=== PATIENT | female | born 1970 | race African-American/Black ===

== ENCOUNTER 2018-10-05 17:01 | Emergency (ER) | payer OTHER ==
[2018-10-05 17:28] LABS: Absolute Lymphocytes (CBC) 3.5 K/uL (0.7-4.9); Absolute Monocytes 0.8 K/uL (0.1-1.3); Basophils % 0.5 % (0-1.3); Eosinophils % 1.6 % (0-4.4); Hematocrit 40.7 % (36.0-45.0); Lymphocytes % 27.4 % (15.3-44.8); MPV 8.5 fL (7.6-11.3); Monocytes % 6.5 % (3.3-12.3); RBC Red Blood Cell Count 4.28 M/uL (3.86-4.86)
[2018-10-05 17:31] LABS: Protime INR 0.97
[2018-10-05 18:08] LABS: ALT/SGPT 27 U/L (12-78); AST/SGOT 13 U/L (15-37); Albumin 3.5 g/dL (3.4-5.0); Alkaline Phosphatase 115 U/L (45-117); BUN Blood Urea Nitrogen 14 mg/dL (7-18); Bicarbonate 34 mmol/L (21-32); Bilirubin Direct < 0.1 mg/dL (0-0.2); Bilirubin Total 0.3 mg/dL (0.2-1.0); Glucose Level 177 mg/dL (74-106); Magnesium 2.1 mg/dL (1.8-2.4); NT PRO-BNP 10 pg/mL (<125); Protein, Total 7.8 g/dL (6.4-8.2); Sodium Level 135 mmol/L (136-145); Troponin (Emerg Dept Use Only) < 0.02 ng/mL (0.0-0.045)
[2018-10-05] MEDS ORDERED: POTASSIUM 25 MEQ EFFERV TAB ONE ×2 (18:46→20:09)
[2018-10-05] MEDS ORDERED: ASPIRIN 81 MG CHEWABLE TABLET ONE (18:56)
[2018-10-05] MEDS ORDERED: CARVEDILOL 6.25 MG TAB ONE (18:56)
--- NOTE | 2018-10-05 18:56 | ER ---
Nurse's Notes [facility] Name: Isa Arthur Age: 48 yrs Sex: Female : 1970 Arrival Date: 10/05/2018 Time: 17:04 Bed 3 Private MD: Diagnosis: Chest pain, unspecified;Obesity, unspecified;Cardiomyopathy;Hypokalemia Presentation: 10/05 17:00 Presenting complaint: EMS states: pt was at cardiac rehab, was on exercise bike for iw about 6 minutes, started feeling chest pressure and discomfort, had approx 45 second run of V-tach, pt has pacemaker/defib. Transition of care: patient was received from another setting of care (ambulatory specialty care practice), cardiac rehab. Onset of symptoms was October 05, 2018. Risk Assessment: Do you want to hurt yourself or someone else? Patient reports no desire to harm self or others. Initial Sepsis Screen: Does the patient meet any 2 criteria? No. Patient's initial sepsis screen is negative. Does the patient have a suspected source of infection? No. Patient's initial sepsis screen is negative. Care prior to arrival: IV initiated. missed attempt X2. 17:00 Method Of Arrival: EMS: [facility] iw 17:14 Acuity: ROSSY 2 iw Historical: - Allergies: 17:23 No Known Allergies; iw - Home Meds: 17:23 atorvastatin 80 mg oral tab 1 tab once daily [Active]; carvedilol 25 mg oral tab 2 iw times per day [Active]; naproxen 500 mg Oral tab 1 tab 2 times per day [Active]; sacubitril-valsartan oral oral 2 times per day [Active]; spironolactone 50 mg Oral tab 1 tab once daily [Active]; torsemide 20 mg oral tab twice a day [Active]; lidocaine 5% patch twice a day [Active]; - PMHx: 17:25 Anemia; CHF; Hypertension; Arthritis; Pacemaker; iw - Immunization history:: Adult Immunizations up to date. - Social history:: Smoking status: Patient/guardian denies using tobacco. - Ebola Screening: : Patient negative for fever greater than or equal to 101.5 degrees Fahrenheit, and additional compatible Ebola Virus Disease symptoms Patient denies exposure to infectious person Patient denies travel to an Ebola-affected area in the 21 days before illness onset No symptoms or risks identified at this time. - Family history:: not pertinent. Screenin:24 Abuse screen: Denies threats or abuse. Denies injuries from another. Nutritional ph screening: No deficits noted. Tuberculosis screening: No symptoms or risk factors identified. Fall Risk None identified. Assessment: 17:30 General: Appears in no apparent distress. comfortable, obese, well groomed, Behavior is ph calm, cooperative, appropriate for age. Pain: Complains of pain in anterior aspect of left upper chest Pain currently is 4 out of 10 on a pain scale. Neuro: Level of Consciousness is awake, alert, obeys commands, Oriented to person, place, time, situation. Cardiovascular: Reports chest pain, palpitations, shortness of breath, when episode of V-tach occurred, denies these symptoms now Capillary refill < 3 seconds in bilateral fingers Patient's skin is warm and dry. Chest pain quality is heaviness, is located in left anterior chest wall began 30 minutes prior to arrival episodes last < 1 minute is aggravated by activity. Respiratory: Airway is patent Respiratory effort is even, unlabored, Respiratory pattern is regular, symmetrical, Denies shortness of breath. GI: Patient currently denies abdominal pain, nausea, vomiting. Derm: Skin is intact, is healthy with good turgor, Skin is pink, warm \\T\\ dry. Musculoskeletal: Circulation, motion, and sensation intact. Range of motion: intact in all extremities. 18:15 Reassessment: Patient appears in no apparent distress at this time. Patient and/or ph family updated on plan of care and expected duration. Pain level reassessed. Patient is alert, oriented x 3, equal unlabored respirations, skin warm/dry/pink. Pt resting quietly, rates pain at 3/10, states, " It isn't really pain , more like discomfort." VSS, HR paced at 106 on bedside monitor. 19:07 Reassessment: Patient appears in no apparent distress at this time. Patient and/or sg family updated on plan of care and expected duration. Pain level reassessed. Patient is alert, oriented x 3, equal unlabored respirations, skin warm/dry/pink. pt to be dc to home pending repeat troponin and adminstration of additional 25 mEq. 19:30 Reassessment: Patient appears in no apparent distress at this time. Patient is alert, lp1 oriented x 3, equal unlabored respirations, skin warm/dry/pink. Patient states feeling better. Pain: Denies pain. Respiratory: Respiratory effort is even, unlabored. 19:30 Reassessment: Aware of waiting for lab results prior to discharge. lp1 Vital Signs: 17:23 BP 125 / 82; Pulse 110; Resp 18 S; Temp 98.3; Pulse Ox 98% on R/A; Weight 121.11 kg; iw Height 5 ft. 4 in. (162.56 cm); Pain 5/10; 18:35 BP 106 / 85; Pulse 102; Resp 18; Pulse Ox 99% on R/A; ph 19:00 BP 110 / 78; Pulse 105; Resp 22; Pulse Ox 99% on R/A; Pain 1/10; lp1 19:30 BP 113 / 84; Pulse 109; Resp 20; Pulse Ox 96% on R/A; lp1 20:09 BP 113 / 80; Pulse 102; Resp 20; Pulse Ox 97% on R/A; Pain 1/10; lp1 17:23 Body Mass Index 45.83 (121.11 kg, 162.56 cm) ED Course: 17:04 Patient arrived in ED. iw 17:07 Sagar Arboleda MD is Attending Physician. elieser 17:08 EKG done, by mineral technologist. reviewed by Sagar Arboleda MD. sm3 17:16 Triage completed. iw 17:24 Arm band placed on. iw 17:30 Inserted saline lock: 20 gauge in right antecubital area, using aseptic technique. ph 18:24 Patient has correct armband on for positive identification. Placed in gown. Bed in low ph position. Call light in reach. Side rails up X2. air sampling and monitoring on. Pulse ox on. NIBP on. Door closed. Noise minimized. Warm blanket given. Head of bed elevated. 18:27 Juan Batista, RN is Primary Nurse. sg 18:34 No provider procedures requiring assistance completed. ph 18:55 Burke Hernandez MD is Referral Physician. elieser 19:07 Initial lab(s) drawn, by me, sent to lab. sg 19:57 Primary Nurse role handed off by Juan Batista, RN ed1 20:01 Marlen Briscoe, RN is Primary Nurse. lp1 20:09 IV discontinued, No redness/swelling at site. Pressure dressing applied. lp1 20:36 XRAY Chest (1 view) In Process Unspecified. EDMS Administered Medications: 18:32 Drug: Potassium Effervescent Tablet 50 mEq Route: PO; sg 19:00 Follow up: Response: No adverse reaction lp1 18:54 Drug: Coreg 25 mg Route: PO; sg 20:11 Follow up: Response: No adverse reaction lp1 18:54 Drug: Aspirin 162 mg Route: PO; sg 20:12 Follow up: Response: No adverse reaction lp1 20:01 Drug: Potassium Effervescent Tablet 25 mEq Route: PO; lp1 20:12 Follow up: Response: No adverse reaction lp1 Outcome: 18:55 Discharge ordered by . elieser 20:09 Discharged to home ambulatory, with family. lp1 20:09 Condition: good 20:09 Discharge instructions given to patient, Instructed on discharge instructions, follow up and referral plans. medication usage, Demonstrated understanding of instructions, follow-up care, medications, Prescriptions given X 1. 20:13 Patient left the ED. lp1 Signatures: Dispatcher [employer] EDMS Juan Batista, RN Sagar Flanagan MD MD cha Williams, Irene RN Kendal Gamez RN RN ed1 Marlen Briscoe RN RN lp1 Agustina Boswell RN RN [address] 3
--- NOTE | 2018-10-05 18:56 | EDPHYS ---
Physician Documentation [facility] Name: Isa Arthur Age: 48 yrs Sex: Female : 1970 Arrival Date: 10/05/2018 Time: 17:04 Bed 3 Private MD: ED Physician Sagar Arboleda HPI: 10/05 18:27 This 48 yrs old Black Female presents to ER via EMS with complaints of Chest Pressure. elieser 18:27 The patient or guardian reports chest pain that is located primarily in the anterior elieser chest wall. Onset: just prior to arrival. The pain does not radiate. Associated signs and symptoms: Pertinent positives: lightheadedness, shortness of breath. The chest pain is described as a pressure. Modifying factors: The symptoms are alleviated by rest, the symptoms are aggravated by exertion. Severity of pain: At its worst the pain was mild in the emergency department the pain has resolved. Historical: - Allergies: 17:23 No Known Allergies; iw - Home Meds: 17:23 atorvastatin 80 mg oral tab 1 tab once daily [Active]; carvedilol 25 mg oral tab 2 iw times per day [Active]; naproxen 500 mg Oral tab 1 tab 2 times per day [Active]; sacubitril-valsartan oral oral 2 times per day [Active]; spironolactone 50 mg Oral tab 1 tab once daily [Active]; torsemide 20 mg oral tab twice a day [Active]; lidocaine 5% patch twice a day [Active]; - PMHx: 17:25 Anemia; CHF; Hypertension; Arthritis; Pacemaker; iw - Immunization history:: Adult Immunizations up to date. - Social history:: Smoking status: Patient/guardian denies using tobacco. - Ebola Screening: : Patient negative for fever greater than or equal to 101.5 degrees Fahrenheit, and additional compatible Ebola Virus Disease symptoms Patient denies exposure to infectious person Patient denies travel to an Ebola-affected area in the 21 days before illness onset No symptoms or risks identified at this time. - Family history:: not pertinent. ROS: 18:27 Constitutional: Negative for fever, chills, and weight loss, Eyes: Negative for injury, elieser pain, redness, and discharge, ENT: Negative for injury, pain, and discharge, Neck: Negative for injury, pain, and swelling, Abdomen/GI: Negative for abdominal pain, nausea, vomiting, diarrhea, and constipation, Back: Negative for injury and pain, : Negative for injury, bleeding, discharge, and swelling, MS/Extremity: Negative for injury and deformity, Skin: Negative for injury, rash, and discoloration, Neuro: Negative for headache, weakness, numbness, tingling, and seizure, Psych: Negative for depression, anxiety, suicide ideation, homicidal ideation, and hallucinations, Allergy/Immunology: Negative for hives, rash, and allergies, Endocrine: Negative for neck swelling, polydipsia, polyuria, polyphagia, and marked weight changes, Hematologic/Lymphatic: Negative for swollen nodes, abnormal bleeding, and unusual bruising. 18:27 Cardiovascular: Positive for chest pain. 18:27 Respiratory: Positive for shortness of breath, on exertion. Exam: 18:27 Constitutional: This is a well developed, well nourished patient who is awake, alert, elieser and in no acute distress. Head/Face: Normocephalic, atraumatic. Eyes: Pupils equal round and reactive to light, extra-ocular motions intact. Lids and lashes normal. Conjunctiva and sclera are non-icteric and not injected. Cornea within normal limits. Periorbital areas with no swelling, redness, or edema. ENT: Nares patent. No nasal discharge, no septal abnormalities noted. Tympanic membranes are normal and external auditory canals are clear. Oropharynx with no redness, swelling, or masses, exudates, or evidence of obstruction, uvula midline. Mucous membranes moist. Neck: Trachea midline, no thyromegaly or masses palpated, and no cervical lymphadenopathy. Supple, full range of motion without nuchal rigidity, or vertebral point tenderness. No Meningismus. Chest/axilla: Normal chest wall appearance and motion. Nontender with no deformity. No lesions are appreciated. Cardiovascular: Regular rate and rhythm with a normal S1 and S2. No gallops, murmurs, or rubs. Normal PMI, no JVD. No pulse deficits. Respiratory: Lungs have equal breath sounds bilaterally, clear to auscultation and percussion. No rales, rhonchi or wheezes noted. No increased work of breathing, no retractions or nasal flaring. Abdomen/GI: Soft, non-tender, with normal bowel sounds. No distension or tympany. No guarding or rebound. No evidence of tenderness throughout. Back: No spinal tenderness. No costovertebral tenderness. Full range of motion. Skin: Warm, dry with normal turgor. Normal color with no rashes, no lesions, and no evidence of cellulitis. MS/ Extremity: Pulses equal, no cyanosis. Neurovascular intact. Full, normal range of motion. Neuro: Awake and alert, GCS 15, oriented to person, place, time, and situation. Cranial nerves II-XII grossly intact. Motor strength 5/5 in all extremities. Sensory grossly intact. Cerebellar exam normal. Normal gait. Psych: Awake, alert, with orientation to person, place and time. Behavior, mood, and affect are within normal limits. 18:27 Musculoskeletal/extremity: DVT Exam: No signs of deep vein thrombosis. no pain, no swelling, no tenderness, negative Homans' sign noted on exam, no appreciated bluish discoloration, no erythema, no increased warmth. 18:32 Cardiovascular: Rate: normal, Rhythm: regular, Pulses: no pulse deficits are elieser appreciated, Heart sounds: normal, normal S1and S2, no S3 or S4, no murmur, no rub, no gallop, Edema: is not appreciated, JVD: is not appreciated. Vital Signs: 17:23 BP 125 / 82; Pulse 110; Resp 18 S; Temp 98.3; Pulse Ox 98% on R/A; Weight 121.11 kg; iw Height 5 ft. 4 in. (162.56 cm); Pain 5/10; 18:35 BP 106 / 85; Pulse 102; Resp 18; Pulse Ox 99% on R/A; ph 19:00 BP 110 / 78; Pulse 105; Resp 22; Pulse Ox 99% on R/A; Pain 1/10; lp1 19:30 BP 113 / 84; Pulse 109; Resp 20; Pulse Ox 96% on R/A; lp1 20:09 BP 113 / 80; Pulse 102; Resp 20; Pulse Ox 97% on R/A; Pain 1/10; lp1 17:23 Body Mass Index 45.83 (121.11 kg, 162.56 cm) iw MDM: 17:07 Patient medically screened. [facility] 18:30 Data reviewed: vital signs, nurses notes, lab test result(s), EKG, radiologic studies, [facility] plain films. 10/05 17:09 Order name: Basic Metabolic Panel; Complete Time: 18:26 [facility] 10/05 17:09 Order name: CBC with Diff; Complete Time: 18:26 [facility] 10/05 17:09 Order name: LFT's; Complete Time: 18:26 [facility] 10/05 17:09 Order name: Magnesium; Complete Time: 18:26 [facility] 10/05 17:09 Order name: NT PRO-BNP; Complete Time: 18:26 [facility] 10/05 17:09 Order name: PT-INR; Complete Time: 18:26 [facility] 10/05 17:09 Order name: Troponin (emerg Dept Use Only); Complete Time: 18:26 [facility] 10/05 17:09 Order name: XRAY Chest (1 view) [facility] 10/05 17:09 Order name: TSH; Complete Time: 18:26 [facility] 10/05 18:55 Order name: Troponin I: 700pm [facility] 10/05 18:55 Order name: Troponin I [facility] 10/05 17:09 Order name: EKG; Complete Time: 17:11 [facility] 10/05 17:09 Order name: Cardiac monitoring; Complete Time: 17:42 [facility] 10/05 17:09 Order name: EKG - Nurse/Tech; Complete Time: 17:42 [facility] 10/05 17:09 Order name: IV Saline Lock; Complete Time: 17:42 [facility] 10/05 17:09 Order name: Labs collected and sent; Complete Time: 17:42 [facility] 10/05 17:09 Order name: O2 Per Protocol; Complete Time: 17:43 [facility] 10/05 17:09 Order name: O2 Sat Monitoring; Complete Time: 17:43 [facility] 10/05 18:27 Order name: PO challenge: juice; Complete Time: 18:27 [facility] Administered Medications: 18:32 Drug: Potassium Effervescent Tablet 50 mEq Route: PO; sg 19:00 Follow up: Response: No adverse reaction lp1 18:54 Drug: Coreg 25 mg Route: PO; sg 20:11 Follow up: Response: No adverse reaction lp1 18:54 Drug: Aspirin 162 mg Route: PO; sg 20:12 Follow up: Response: No adverse reaction lp1 20:01 Drug: Potassium Effervescent Tablet 25 mEq Route: PO; lp1 20:12 Follow up: Response: No adverse reaction lp1 Disposition: 10/05/18 18:55 Discharged to Home. Impression: Chest pain, unspecified, Obesity, unspecified, Cardiomyopathy, Hypokalemia. - Condition is Stable. - Discharge Instructions: Nonspecific Chest Pain, Obesity, Adult, Nonspecific Chest Pain, [id number], Aspirin and Your Heart, Hypokalemia. - Prescriptions for Potassium Chloride 20 meq Oral Packet - take 1 packet by ORAL route once daily 1 packet in 6 (six) ounces of water or juice; Take after meal; 30 packet. - Medication Reconciliation Form, Thank You Letter, Antibiotic Education, Prescription Opioid Use form. - Follow up: Private Physician; When: 2 - 3 days; Reason: Recheck today's complaints, Continuance of care, Re-evaluation by your physician. Follow up: Burke Hernandez; When: 2 - 3 days; Reason: Recheck today's complaints, Continuance of care, Re-evaluation by your physician. - Problem is new. - Symptoms have improved. Signatures: Dispatcher [employer] EDMS Juan Batista RN RN sg Anderson, Corey, MD MD cha Williams, Irene, RN RN iw Marlen Briscoe RN RN lp1 Corrections: (The following items were deleted from the chart) 20:13 18:55 10/05/2018 18:55 Discharged to Home. Impression: Chest pain, unspecified; lp1 Obesity, unspecified; Cardiomyopathy; Hypokalemia. Condition is Stable. Discharge Instructions: Nonspecific Chest Pain, Obesity, Adult, Nonspecific Chest Pain, [id number], Aspirin and Your Heart, Hypokalemia. Prescriptions for Potassium Chloride 20 meq Oral Packet - take 1 packet by ORAL route once daily 1 packet in 6 (six) ounces of water or juice; Take after meal; 30 packet. and Forms are Medication Reconciliation Form, Thank You Letter, Antibiotic Education, Prescription Opioid Use. Follow up: Private Physician; When: 2 - 3 days; Reason: Recheck today's complaints, Continuance of care, Re-evaluation by your physician. Follow up: Burke Hernandez; When: 2 - 3 days; Reason: Recheck today's complaints, Continuance of care, Re-evaluation by your physician. Problem is new. Symptoms have improved. elieser
--- OUTSIDE RECORDS SUMMARY | 2018-10-06 12:34 | XMS REPORT | Clinical Summary ---
:1970 Author Organization [facility] Address [address] [place] [address] Care Team Providers Name Role Phone Armando Palma MD Primary Care Provider Allergies No Known Allergies Medications Medication Sig Dispensed Refills Start Date End Date Status diphenhydrAMINE Take 50 mg by 0 07/19/2015 Active (BENADRYL) 25 mg mouth every night capsuleIndications: as needed . allergic rhinitis carvedilol (COREG) 12.5 Take 12.5 mg by 0 Active MG tabletIndications: mouth 2 (two) chronic heart failure times daily with breakfast and dinner Take 1 1/2 tablet twice a day . digoxin (LANOXIN) 0.125 Take 125 mcg by 0 Active MG tabletIndications: mouth daily. Acute on chronic combined systolic (congestive) and diastolic (congestive) heart failure (HCC), Palpitations, Essential hypertension with goal blood pressure less than 130/80, Biventricular ICD (implantable cardioverter-defibrilla tor) in place sacubitril-valsartan Take 1 tablet by 60 tablet 0 01/27/2016 Active (ENTRESTO) 24-26 mg Tab mouth 2 (two) times daily. ivabradine (CORLANOR) 5 Take 1 tablet (5 30 tablet 0 01/27/2016 Active mg Tab tablet mg total) by mouth 2 (two) times daily. 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 Last Filed Vital Signs Not on file Plan of Treatment Health Maintenance Due Date Last Done Comments INFLUENZA VACCINE 02/07/2018 Implants Implanted Type Area Technology Lab Teacher Device Shelf Model / Identifier Expiration Serial / Date Lot Lead Attain Performa 78cm [id number] - [id number] Cardiovascular [employer]:CARD 10/30/2017 [id number] / Implanted: Qty: 1 on 01/09/2016 RHY:DISEASE MGT [id number] / Ld Endocardial Df4 Act 62 [id number] - [id number] Defibrillators [employer]: CARD 06/06/2017 [id number] / Implanted: Qty: 1 on 01/09/2016 by Jose Saldana MD RHY:DISEASE MGT [id number] / Lead Pacemkr Capsur Novus 45cm [id number] - [id number] Pacemaker Lead [employer] :CARD 11/12/2017 [id number] / Implanted: Qty: 1 on 01/09/2016 by Jose Saldana MD RHY:DISEASE MGT [id number] / Amplia Mri Quad Primer Waterproofing Machine Adjuster-D Surescan Pacemakers [employer] 04/06/2017 [id number] / Implanted: Qty: 1 on 01/09/2016 by Jose Saldana MD [id number] / Results Not on fileafter 10/05/2017 Insurance Payer Benefit Plan / Subscriber ID Type Phone Address Group BLUE CROSS/BLUE BCBS PPO POS EPO xxxxxxxxxxxx PPO [phone] [address] [place] [address] (Home) [place] [address] Advance Directives For more information, please contact:[address] [place]iB[place], [place] [phone] Code Status Date Activated Date Inactivated Comments Full Code 03/19/2016 9:38 AM 03/19/2016 10:16 PM This code status was determined by: Patient Full Code 01/06/2016 10:17 AM 01/10/2016 4:19 PM This code status was determined by: Patient
--- NOTE | 2018-10-06 14:32 | EKG ---
Test Date: 2018-10-05 Test Time: 17:03:29 Channel Sales Director: KANDICE MEASUREMENT RESULTS: Intervals: Rate: 107 MA: 124 QRSD: 148 QT: 410 QTc: 547 [place]: P: 66 MA: 124 QRS: -77 T: 63 INTERPRETIVE STATEMENTS: Electronic ventricular pacemaker No previous ECG available for comparison Electronically Signed On 10-06-18 14:29:12 CDT by Burke Hernandez
--- NOTE | 2018-10-06 15:19 | RAD REPORT ---
EXAM DESCRIPTION: Tomasa Single View10/06/2018 11:37 am CLINICAL HISTORY: Chest pain COMPARISON: None FINDINGS: The lungs appear clear of acute infiltrate. The heart is mildly enlarged. Pacemaker leads are in place. IMPRESSION: No acute abnormalities displayed
== END 2018-10-05 20:13 | disposition home or self-care (01) ==
LOC: ER 17:01
DX: R07.9 Chest pain, unspecified (principal); E66.9 Obesity, unspecified; Z68.42 Body mass index [BMI] 45.0-49.9, adult; I42.9 Cardiomyopathy, unspecified; E87.6 Hypokalemia; D64.9 Anemia, unspecified; I11.0 Hypertensive heart disease with heart failure; I50.9 Heart failure, unspecified
CPT/HCPCS: 36415; 71045; 80048; 80076; 83735; 83880; 84443; 84484; 85025; 85610; 93005; 99285

== ENCOUNTER 2020-05-21 15:56 | Emergency (ER) | payer OTHER ==
--- OUTSIDE RECORDS SUMMARY | 2020-05-21 16:08 | XMS REPORT | Continuity of Care Document ---
:1970 Author Organization [facility] t Address [address] [place] [address] Care Team Providers Name Role Phone Minerva WHALEY Primary Care Physician Pilo Blanc Attending Clinician Problems Condition Condition Condition Status Onset Resolution Last Treating Co mments Source Name Details Category Date Date Treatment Clinician Date Supraventr Supraventr Disease Active 2015-[address] icular icular 1-10 [facility] tachycardi tachycardi 00:00: Me dical a a 00 Center Chronic Chronic Disease Active [facility] St combined combined 01-23 [facility] - systolic systolic 00:00: Medica l (congestiv (congestiv 00 Ce nter e) and e) and diastolic diastolic (congestiv (congestiv e) heart e) heart failure failure Hypertensi Hypertensi Disease Active [facility] on on 01-23 [facility] - 00:[facility] Medical 00 Center Acute on Acute on Disease [facility] chronic chronic 12[facility]30 [facility] - combined combined 00:00: Medica l systolic systolic 00 Center (congestiv (congestiv e) and e) and diastolic diastolic (congestiv (congestiv e) heart e) heart failure failure Allergies, Adverse Reactions, Alerts This patient has no known allergies or adverse reactions. Social History Social Habit Start Date Stop Date Quantity Comments Source Sex Assigned At [facility] Tobacco use and 2016-03-20 2016-03-[address] [facility] - exposure 00:00:00 00:00:00 Medical Center Alcohol intake 2016-03-20 2016-03-[address] [facility] - 00:00:00 00:00:00 non-drinker of Medical Ce nter alcohol (finding) Smoking Status Start Date Stop Date Source Never sm[facility] Medications Ordered Filled Start Stop Current Ordering Indication Dosage Frequency Signature Comments Components Source Medication Medication Date Date Medication? Clinician (SIG) Name Name carvedilol 2015-05 Yes chronic 12.5mg Take 12.[address] (COREG) 1-10 heart mg by [facility] - 12.5 MG 20:16: failure mouth 2 Medi nasrin tablet 01 (two) Center times daily with breakfast and dinner Take 1 1/2 tablet twice a day . digoxin 2015-05 Yes Biventricul 125ug QD Take [address] (LANOXIN) 1-10 ar ICD mcg by [facility] - 0.125 MG 20:16: (implantabl mouth M edical tablet 01 e daily. Center cardioverte r-defibrill ator) in place sacubitril- Yes 1{tbl} Q.5D Take [address] valsartan 9-19 tablet by [facility] - (ENTRESTO) 00:00: mouth 2 Medi nasrin 24-26 mg 00 (two) Center Tab times daily. ivabradine Yes 5mg Q.5D Take 1 [facility] (CORLANOR) 9-19 tablet (5 [facility] s - 5 mg Tab 00:00: mg total) Medi nasrin tablet 00 by mouth 2 Center (two) times daily. diphenhydrA Yes allergic 50mg Take [address] MINE 3-11 rhinitis by mouth [facility] - (BENADRYL) 00:00: every Medica l 25 mg 00 night as Center capsule needed . Immunizations Ordered Immunization Filled Immunization Date Status Commen ts Source Name Name Pneumococcal 2016-01-[address] [facility] - Polysaccharide 00:00:00 Medical Ce nter (Pneumovax) Procedures This patient has no known procedures. Encounters Start End Encounter Admission Attending Care Care Encounter Source Date/Time Date/Time Type Type Clinicians Facility Department ID 2019-06-21 2019-06-21 [id number] 19:42:28 20:57:00 Leo El [id number] [place] [id number] [place] [id number] Results This patient has no known results.
--- OUTSIDE RECORDS SUMMARY | 2020-05-21 16:08 | XMS REPORT | Clinical Summary ---
:1970 Author Organization [facility] Address [address] [place] [address] Care Team Providers Name Role Phone MD Minerva Primary Care Provider Allergies No Known Allergies [...] Take 1 tablet (5 30 tablet 0 6 Active mg Tab tablet mg total) by mouth 2 (two) times daily. 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 Hypertension 01/24/2016 Acute on chronic combined systolic (congestive) and di astolic (congestive) 12/31/2015 heart failure Immunizations Name Administration Dates Next Due Pneumococcal Polysaccharide (Pneumovax) 01/23/2016 Social History Tobacco Use Types Packs/Day Years Used Date Never Smoker Smokeless Tobacco: Never Used Alcohol Use Drinks/Week oz/Week Comments No Sex Assigned at Date Recorded Not on file Last Filed Vital Signs Not on file Plan of Treatment Not on file Implants Implanted Type Area Infection Prevention Coordinator Device Shelf Model / Identifier Expiration Serial / Date Lot Lead Attain Performa 78cm [id number] - [id number] Cardiovascular [employer]:CARD 10/30/2017 [id number] / Implanted: Qty: 1 on 01/09/2016 at [facility] RHY:DISEASE MGT [id number] / Ld Endocardial Df4 Act 62 [id number]-62 - [id number] Defibrillators [employer]:CARD 06/06/2017 [id number] / Implanted: Qty: 1 on 01/09/2016 by Jose Saldana MD at [facility] RHY:DISEASE MGT [id number] / Lead Pacemkr Capsur Novus 45cm 5076-45 - [id number] Pacemaker Ariana d [employer]:CARD 11/12/2017 [id number] / Implanted: Qty: 1 on 01/09/2016 by Jose Saldana MD at [facility] RHY:DISEASE MGT [id number] / Amplia Mri Quad Projection Technician-D Surescan Pacemakers [employer] 04/06/2017 [id number] / Implanted: Qty: 1 on 01/09/2016 by Jose Saldana MD at [facility] RPE [id number] / Results Not on fileafter 05/21/2019 Insurance Payer Benefit Plan / Subscriber ID Effective Dates Phone Addre ss Type Group BLUE BCBS PPO POS [id number] 2013-Bab[place]unde [phone] [id number] PPO CROSS/BLUE EPO CHOICE t 2 [facility] [id number] Advance Directives For more information, please contact: [phone] Code Status Date Activated Date Inactivated Comments Full Code 03/19/2016 9:38 AM 03/19/2016 10:16 PM This code status was determined by: Patient Full Code 01/06/2016 10:17 AM 01/10/2016 4:19 PM This code status was determined by: Patient
[2020-05-21 18:43] LABS: Absolute Lymphocytes (CBC) 3.1 K/uL (0.7-4.9); Basophils % 0.3 % (0-1.3); Hematocrit 41.8 % (36.0-45.0); Lymphocytes % 25.4 % (15.3-44.8); MPV 8.6 fL (7.6-11.3); RBC Red Blood Cell Count 4.33 M/uL (3.86-4.86)
[2020-05-21 18:55] LABS: Protime INR 1.04
--- NOTE | 2020-05-21 18:59 | RAD REPORT ---
EXAM DESCRIPTION: Tomasa Single View05/21/2020 6:53 pm CLINICAL HISTORY: sob COMPARISON: Dec 2019 FINDINGS: The lungs appear clear of acute infiltrate. The heart is mildly to moderately enlarged. P acemaker leads are in place. IMPRESSION: No acute abnormalities displayed
[2020-05-21 19:02] LABS: ALT/SGPT 19 U/L (12-78); AST/SGOT 12 U/L (15-37); Albumin 3.6 g/dL (3.4-5.0); Alkaline Phosphatase 92 U/L (45-117); BUN Blood Urea Nitrogen 9 mg/dL (7-18); Bicarbonate 31 mmol/L (21-32); Bilirubin Direct < 0.1 mg/dL (0-0.2); Bilirubin Total 0.5 mg/dL (0.2-1.0); Glucose Level 93 mg/dL (74-106); Magnesium 2.1 mg/dL (1.8-2.4); NT PRO-BNP 338 pg/mL (<125); Potassium 3.9 mmol/L (3.5-5.1); Sodium Level 139 mmol/L (136-145); Troponin (Emerg Dept Use Only) < 0.02 ng/mL (0.0-0.045)
--- NOTE | 2020-05-21 19:55 | RAD REPORT ---
EXAM DESCRIPTION: CT - Chest For Pe Angio - 05/21/2020 7:44 pm CLINICAL HISTORY: Chest pain COMPARISON: None. TECHNIQUE: Dynamically enhanced axial 3 mm thick images of the chest were obtained during administra tion of <100> mL Isovue 370 IV contrast. Coronal and oblique reconstruction images were generated and reviewed. Exam utilizes a protocol for optimal evaluation of pulmonary arterial tree. Maximum intensity projections 3D imaging was utilized All CT scans are performed using dose optimization technique as appropriate and may include automated exposure control or mA/KV adjustment according to patient size. FINDINGS: A pulmonary embolus is not seen. A thoracic aortic aneurysm is not noted. The heart is enlarged A pleural effusion is not seen. A pericardial effusion is not seen. A lung consolidation is not present. IMPRESSION: Negative for a pulmonary embolism.
--- NOTE | 2020-05-21 22:34 | EDPHYS ---
Physician Documentation [facility] Name: Isa Day Age: 50 yrs Sex: Female : 1970 Arrival Date: 05/21/2020 Time: 16:01 Bed 6 Private MD: ED Physician Sagar Arboleda HPI: 05/21 18:18 This 50 yrs old Black Female presents to ER via EMS with complaints of Palpitations, cp Shortness Of Breath. 18:18 The patient presents with a history of heart racing. Context: The symptoms occur at cp rest. Associated signs and symptoms: Pertinent positives: cough, SOB, Pertinent negatives: chest pain, fever, syncope. 18:18 Severity of symptoms: in the emergency department the symptoms are unchanged despite cp home interventions. 18:18 Onset: The symptoms/episode began/occurred 2 day(s) ago. cp Historical: - Allergies: 16:24 No Known Allergies; ss - PMHx: 16:24 Anemia; Arthritis; Hypertension; CHF; ss - PSHx: 16:24 Pacemaker/ defib; ss - Immunization history:: Adult Immunizations up to date. - Social history:: Smoking status: Patient denies any tobacco usage or history of. ROS: 18:25 Constitutional: Negative for body aches, chills, fever, poor PO intake. cp 18:25 Eyes: Negative for injury, pain, redness, and discharge. cp 18:25 ENT: Negative for ear pain, sore throat, difficulty swallowing, difficulty handling secretions. 18:25 Cardiovascular: Positive for palpitations, Negative for chest pain, edema. 18:25 Respiratory: Positive for cough, shortness of breath, on exertion. Negative for wheezing. 18:25 Abdomen/GI: Negative for abdominal pain, nausea, vomiting, and diarrhea, constipation, black/tarry stool, rectal bleeding. 18:25 Back: Negative for radiated pain. 18:25 Neuro: Negative for altered mental status, dizziness, headache, syncope, weakness. 18:25 All other systems are negative. Exam: 18:30 Constitutional: The patient appears in no acute distress, alert, awake, cp non-diaphoretic, non-toxic, well developed, well nourished, obese. 18:30 Head/Face: Normocephalic, atraumatic. cp 18:30 Eyes: Periorbital structures: appear normal, Conjunctiva: normal, no exudate, no injection, Sclera: no appreciated abnormality, Lids and lashes: appear normal, bilaterally. 18:30 ENT: External ear(s): are unremarkable, Nose: is normal, Mouth: Lips: moist, Oral mucosa: moist, Posterior pharynx: Airway: no evidence of obstruction, patent. 18:30 Neck: ROM/movement: is normal, is supple, without pain, no range of motions limitations. 18:30 Chest/axilla: Inspection: normal, Palpation: is normal, no crepitus, no tenderness. 18:30 Cardiovascular: Rate: normal, Rhythm: regular, Edema: is not appreciated, JVD: is not appreciated. 18:30 Respiratory: the patient does not display signs of respiratory distress, Respirations: normal, no use of accessory muscles, no retractions, labored breathing, is not present, Breath sounds: are clear throughout, no decreased breath sounds, no stridor, no wheezing. 18:30 Abdomen/GI: Exam negative for discomfort, distension, guarding, Inspection: abdomen appears normal. 18:30 Back: pain, is absent, ROM is normal. 18:30 Neuro: Orientation: to person, place \T\ time. Mentation: is normal, Cerebellar function: is grossly normal, Motor: moves all fours, strength is normal, Sensation: is normal. 18:50 ECG was reviewed by the Attending Physician. Vital Signs: 16:18 BP 114 / 68; Pulse 62; Resp 18; Temp 97.4(TE); Pulse Ox 99% ; Weight 119.29 kg; Height ss 5 ft. 4 in. (162.56 cm); Pain 0/10; 18:30 BP 124 / 84; Pulse 97; Resp 18; Pulse Ox 99% on R/A; em 20:35 BP 136 / 91; Pulse 88; Resp 18; Pulse Ox 98% on R/A; mg2 22:33 BP 136 / 91; Pulse 96; Resp 18; Pulse Ox 100% on R/A; mg2 16:18 Body Mass Index 45.14 (119.29 kg, 162.56 cm) MDM: 18:11 Patient medically screened. [facility] 22:32 Data reviewed: vital signs, nurses notes, lab test result(s), EKG, radiologic studies, cp CT scan, plain films. 22:32 Test interpretation: by ED physician or midlevel provider: ECG, plain radiologic cp studies. Counseling: I had a detailed discussion with the patient and/or guardian regarding: the historical points, exam findings, and any diagnostic results supporting the discharge/admit diagnosis, lab results, radiology results, the need for outpatient follow up, a health coach, to return to the emergency department if symptoms worsen or persist or if there are any questions or concerns that arise at home. Response to treatment: the patient's symptoms have mildly improved after treatment, and as a result, I will discharge patient. 05/21 18:16 Order name: Basic Metabolic Panel; Complete Time: 19:11 05/21 20:12 Interpretation: Normal except: GFR 88. 05/21 18:16 Order name: CBC with Diff; Complete Time: 19:11 05/21 18:16 Order name: LFT's; Complete Time: 19:11 05/21 18:16 Order name: Magnesium; Complete Time: 19:11 05/21 18:16 Order name: NT PRO-BNP; Complete Time: 19:11 05/21 18:16 Order name: PT-INR; Complete Time: 19:11 05/21 18:16 Order name: Troponin (emerg Dept Use Only); Complete Time: 19:11 05/21 18:16 Order name: XRAY Chest (1 view); Complete Time: 19:11 05/21 18:56 Order name: D-Dimer; Complete Time: 19:11 [facility] 05/21 19:13 Order name: CT Chest For PE Angio; Complete Time: 20:11 05/21 20:30 Order name: SARS-COV-2 RT PCR [facility] 05/21 21:19 Order name: Troponin I 05/21 18:16 Order name: EKG; Complete Time: 18:17 05/21 18:16 Order name: Cardiac monitoring; Complete Time: 19:01 05/21 18:16 Order name: EKG - Nurse/Tech; Complete Time: 19:01 05/21 18:16 Order name: IV Saline Lock; Complete Time: 19:00 05/21 18:16 Order name: Labs collected and sent; Complete Time: 19:01 05/21 18:16 Order name: O2 Per Protocol; Complete Time: 19:01 cp 05/21 18:16 Order name: O2 Sat Monitoring; Complete Time: : cp EC:50 Rate is 91 beats/min. Rhythm is regular. MA interval is normal. QRS interval is cp prolonged at 118 msec. QT interval is normal. Interpreted by me. Reviewed by me. Administered Medications: No medications were administered Disposition: 05/22 10:32 Co-signature as Attending Physician, Sagar Arboleda MD I agree with the assessment and [facility] plan of care. Disposition: 05/21/20 22:33 Discharged to Home. Impression: Palpitations. - Condition is Stable. - Discharge Instructions: Palpitations. - Medication Reconciliation Form, Thank You Letter, Antibiotic Education, Prescription Opioid Use form. - Follow up: Private Physician; When: 1 - 2 days; Reason: Recheck today's complaints. - Problem is new. - Symptoms have improved. Signatures: Dispatcher [employer] EDOK Sagar Arboleda MD MD cha Smirch, Shelby, RN RN ss Sagar Ramirez PA PA cp Gardose, Michele, RN RN mg2 Corrections: (The following items were deleted from the chart) 05/21 18:56 18:18 D-DIMER+COAG.LAB.BRZ ordered. [facility] EDMS 19:33 18:20 CORONAVIRUS+MR.LAB.BRZ ordered. [facility] EDMS 22:42 22:33 05/21/2020 22:33 Discharged to Home. Impression: Palpitations. Condition is mg2 Stable. Forms are Medication Reconciliation Form, Thank You Letter, Antibiotic Education, Prescription Opioid Use. Follow up: Private Physician; When: 1 - 2 days; Reason: Recheck today's complaints. Problem is new. Symptoms have improved. cp 05/22 18:58 05/21 18:18 Associated signs and symptoms: Pertinent positives: chest pain, cough, SOB, cp cp
--- NOTE | 2020-05-21 22:34 | ER ---
Nurse's Notes [facility] Name: Isa Day Age: 50 yrs Sex: Female : 1970 Arrival Date: 05/21/2020 Time: 16:01 Bed 6 Private MD: Diagnosis: Palpitations Presentation: 05/21 16:18 Chief complaint: Patient states: Shortness of breath upon exertion and palpitations ss that began 2 days ago. Pt reports that she normally has palpitations walking around, but now she has palpitations at rest. "My HR was 101 and it's always 80 so that had me concerned.". Coronavirus screen: Client denies travel out of the [place] in the last 14 days. Ebola Screen: Patient denies exposure to infectious person. Patient denies travel to an Ebola-affected area in the 21 days before illness onset. Initial Sepsis Screen: Does the patient meet any 2 criteria? No. Patient's initial sepsis screen is negative. Does the patient have a suspected source of infection? No. Patient's initial sepsis screen is negative. Risk Assessment: Do you want to hurt yourself or someone else? Patient reports no desire to harm self or others. Onset of symptoms was May 19, 2020. 16:18 Method Of Arrival: EMS: [facility] 16:18 Acuity: ROSSY 3 ss Historical: - Allergies: 16:24 No Known Allergies; ss - PMHx: 16:24 Anemia; Arthritis; Hypertension; CHF; ss - PSHx: 16:24 Pacemaker/ defib; ss - Immunization history:: Adult Immunizations up to date. - Social history:: Smoking status: Patient denies any tobacco usage or history of. Screenin:20 Abuse screen: Denies threats or abuse. Nutritional screening: No deficits noted. em Tuberculosis screening: No symptoms or risk factors identified. Fall Risk None identified. Assessment: 18:20 General: Appears in no apparent distress. comfortable, Behavior is calm, cooperative, em appropriate for age, Denies fever. Pain: Denies pain. Neuro: Level of Consciousness is awake, alert, obeys commands, Oriented to person, place, time, situation, Appropriate for age. Cardiovascular: Reports palpitations, shortness of breath, Denies chest pain, Capillary refill < 3 seconds Patient's skin is warm and dry. Rhythm is ventricular pacer. Respiratory: Airway is patent Respiratory effort is even, unlabored, Respiratory pattern is regular, symmetrical, Breath sounds are clear. GI: Patient currently denies nausea, vomiting. Derm: Skin is intact, is healthy with good turgor, Skin is pink, warm \\T\\ dry. Musculoskeletal: Capillary refill < 3 seconds, Range of motion: intact in all extremities. 19:33 Reassessment: patient sent to CT via strecher. mg2 20:35 Reassessment: Patient appears in no apparent distress at this time. Patient and/or mg2 family updated on plan of care and expected duration. Pain level reassessed. Patient is alert, oriented x 3, equal unlabored respirations, skin warm/dry/pink. 22:33 Reassessment: Patient appears in no apparent distress at this time. Patient and/or mg2 family updated on plan of care and expected duration. Pain level reassessed. Patient is alert, oriented x 3, equal unlabored respirations, skin warm/dry/pink. 22:41 Reassessment: Patient states feeling better. mg2 Vital Signs: 16:18 BP 114 / 68; Pulse 62; Resp 18; Temp 97.4(TE); Pulse Ox 99% ; Weight 119.29 kg; Height ss 5 ft. 4 in. (162.56 cm); Pain 0/10; 18:30 BP 124 / 84; Pulse 97; Resp 18; Pulse Ox 99% on R/A; em 20:35 BP 136 / 91; Pulse 88; Resp 18; Pulse Ox 98% on R/A; mg2 22:33 BP 136 / 91; Pulse 96; Resp 18; Pulse Ox 100% on R/A; mg2 16:18 Body Mass Index 45.14 (119.29 kg, 162.56 cm) ED Course: 16:01 Patient arrived in ED. as 16:23 Triage completed. ss 16:24 Arm band placed on right wrist. ss 18:09 Sagar Ramirez PA is PHCP. cp 18:09 Sagar Arboleda MD is Attending Physician. cp 18:20 Patient has correct armband on for positive identification. Placed in gown. Bed in low em position. Call light in reach. Side rails up X2. library monitor on. Pulse ox on. NIBP on. 18:21 Hank Mcdaniels, ARIEL is Primary Nurse. em 18:30 Initial lab(s) drawn, by ny, sent to lab. Inserted saline lock: 20 gauge in left em antecubital area, using aseptic technique. Blood collected. 18:56 XRAY Chest (1 view) In Process Unspecified. EDMS 19:46 CT Chest For PE Angio In Process Unspecified. EDMS 20:38 Primary Nurse role handed off by Hank Mcdaniels, RN mw2 21:53 Hammad Dior, RN is Primary Nurse. mg2 22:41 No provider procedures requiring assistance completed. IV discontinued, intact, mg2 bleeding controlled, No redness/swelling at site. Pressure dressing applied. Administered Medications: No medications were administered Outcome: 22:33 Discharge ordered by MD. cp 22:41 Discharged to home ambulatory. mg2 22:41 Condition: stable 22:41 Discharge instructions given to patient, Instructed on discharge instructions, follow up and referral plans. Demonstrated understanding of instructions, follow-up care. 22:42 Patient left the ED. mg2 Signatures: Dispatcher [employer] EDWI Hank Mcdaniels, RN RN Sierra Carey Shelby, RN RN Sagar Huber, NADINE PA Kristopher Roman mw2 Hammad Dior, RN RN mg2
[2020-05-21 22:47] VITALS: TEMP 97.4
[2020-05-21 22:49] VITALS: BP 136/91
[2020-05-21 22:50] VITALS: O2SAT 100
--- NOTE | 2020-05-22 06:09 | EKG ---
Test Date: 2020-05-21 Test Time: 18:43:04 Respiratory Therapy Director: JENA MEASUREMENT RESULTS: Intervals: Rate: 91 MO: 186 QRSD: 118 QT: 412 QTc: 506 [place]: P: 55 MO: 186 QRS: 47 T: 57 INTERPRETIVE STATEMENTS: Electronic ventricular pacemaker Compared to ECG 12/21/2019 12:05:11 No significant changes Electronically Signed On 05-22-20 06:08:52 TOOL CRIB LEAD by Burke Hernandez
== END 2020-05-21 22:42 | disposition home or self-care (01) ==
LOC: ER 15:56
DX: R00.2 Palpitations (principal); Z20.822 Contact with and (suspected) exposure to COVID-19; I10 Essential (primary) hypertension; Z95.810 Presence of automatic (implantable) cardiac defibrillator
CPT/HCPCS: 93005; 85025; 80048; 36415; 83735; 85610; 85379; 80076; 84484 ×2; 83880; 71275; 71045; 99284; U0003; Q9967

== ENCOUNTER 2020-08-24 13:46 | Emergency (ER) | payer OTHER ==
--- OUTSIDE RECORDS SUMMARY | 2020-08-24 13:49 | XMS REPORT | Continuity of Care Document ---
:1970 Author Organization [facility] t Address [address] [place] [address] Care Team Providers Name Role Phone Minerva WHALEY Primary Care Physician Pilo Blanc Attending Clinician Problems Condition Condition Condition Status Onset Resolution Last Treating Co mments Source Name Details Category Date Date Treatment Clinician Date Supraventr Supraventr Disease Active 2015-[address] icular icular 1-10 [facility] tachycardi tachycardi 00:00: Me dical a a 00 Center Chronic Chronic Disease Active [facility] combined combined 01-23 [facility] - systolic systolic 00:00: Medica l (congestiv (congestiv 00 Ce nter e) and e) and diastolic diastolic (congestiv (congestiv e) heart e) heart failure failure Hypertensi Hypertensi Disease Active [facility] on on 01-23 [facility] - 00:00: Medical 00 Center Acute on Acute on Disease Active [facility] S t chronic chronic 12-30 [facility] - combined combined 00:00: Medica l systolic systolic 00 Center (congestiv (congestiv e) and e) and diastolic diastolic (congestiv (congestiv e) heart e) heart failure failure Allergies, Adverse Reactions, Alerts This patient has no known allergies or adverse reactions. Social History Social Habit Start Date Stop Date Quantity Comments Source Sex Assigned At [facility] Tobacco use and 2016-03-20 2016-03-20 [...] [facility] - (ENTRESTO) 00:00: mouth 2 Medi ansrin 24-26 mg 00 (two) Center Tab times [...] Clinicians Facility Department ID 2019-06-21 2019-06-21 Emergency [facility] [id number] 19:42:28 20:57:00 Leo El [id number] [place] [id number] Nursery [id number] Results This patient has no known results.
[2020-08-24] MEDS ORDERED: ALBUTEROL INHALER 60 PUFF/8 GM IH ONE (15:29)
[2020-08-24] MEDS ORDERED: HYDROCODONE/CHLORPHEN 5 ML/OSYR ONE (15:29)
--- NOTE | 2020-08-24 15:57 | RAD REPORT ---
EXAM DESCRIPTION: RAD - Chest Single View - 08/24/2020 3:11 pm CLINICAL HISTORY: COUGH COMPARISON: Portable May 21 TECHNIQUE: AP portable chest image was obtained 08/24/2020 3:11 pm . FINDINGS: No peripheral mass or consolidation identified. Mildly prominent interstitial pattern matc hes comparison. Defibrillator overlies the left lower chest. Heart size is normal range and stable fo r portable imaging. Central vasculature is mildly prominent but not substantially different. No measu rable pleural effusion and no pneumothorax. No acute bony abnormality seen. No acute aortic findings suspected. IMPRESSION: No acute cardiopulmonary finding confirmed. Above detailed chest findings are not substantially different from May.
[2020-08-24 18:07] LABS: SARS-COV-2 RT PCR NEGATIVE (NEGATIVE)
--- NOTE | 2020-08-24 18:11 | ER ---
Nurse's Notes [facility] Name: Isa Day Age: 50 yrs Sex: Female : 1970 Arrival Date: 08/24/2020 Time: 13:48 Bed 16 Private MD: Diagnosis: Bronchitis, not specified as acute or chronic Presentation: 08/24 14:09 Chief complaint: Patient states: Cough x 1 week, wheezing x 3 days. Feeling tired and ca1 weak x 1 week. Denies fever. reports sore throat. Coronavirus screen: Client denies travel out of the [place] in the last 14 days. cough unrelated to allergies, sore throat. Ebola Screen: Patient negative for fever greater than or equal to 101.5 degrees Fahrenheit, and additional compatible Ebola Virus Disease symptoms Patient denies exposure to infectious person. Patient denies travel to an Ebola-affected area in the 21 days before illness onset. No symptoms or risks identified at this time. Initial Sepsis Screen: Does the patient meet any 2 criteria? No. Patient's initial sepsis screen is negative. Does the patient have a suspected source of infection? No. Patient's initial sepsis screen is negative. Risk Assessment: Do you want to hurt yourself or someone else? Patient reports no desire to harm self or others. Onset of symptoms was August 24, 2020. 14:09 Method Of Arrival: Ambulatory ca1 14:09 Acuity: ROSSY 3 ca1 APPLICATIONS ARCHITECT: 14:12 LMP N/A - control method ca1 Historical: - Allergies: 14:12 No Known Allergies; ca1 - PMHx: 14:12 Anemia; Arthritis; CHF; Hypertension; Pacemaker; ca1 - PSHx: 14:12 Pacemaker/ defib; ca1 - Immunization history:: Flu vaccine is up to date. - Social history:: Smoking status: Patient denies any tobacco usage or history of. Screenin:50 Abuse screen: Denies threats or abuse. Nutritional screening: No deficits noted. jd3 Tuberculosis screening: Fall Risk Ambulatory Aid- None/Bed Rest/Nurse Assist (0 pts). Gait- Normal/Bed Rest/Wheelchair (0 pts) Mental Status- Oriented to own ability (0 pts). Total Ledesma Fall Scale indicates No Risk (0-24 pts). Assessment: 15:30 General: Appears in no apparent distress. comfortable, Behavior is calm, cooperative, jd3 appropriate for age. Pain: Complains of pain in throat Quality of pain is described as aching. Neuro: Level of Consciousness is awake, alert, obeys commands, Oriented to person, place, time, situation. Cardiovascular: Denies chest pain, Capillary refill < 3 seconds Patient's skin is warm and dry. Respiratory: Reports cough that is non-productive, persistent Airway is patent Respiratory effort is even, unlabored, Respiratory pattern is regular, symmetrical. GI: No signs and/or symptoms were reported involving the gastrointestinal system. : No signs and/or symptoms were reported regarding the genitourinary system. EENT: No signs and/or symptoms were reported regarding the EENT system. Derm: Skin is intact, Skin is dry, Skin is normal, Skin temperature is warm. Musculoskeletal: Circulation, motion, and sensation intact. Range of motion: intact in all extremities. 16:34 Reassessment: Patient appears in no apparent distress at this time. Patient and/or jd3 family updated on plan of care and expected duration. Pain level reassessed. Patient is alert, oriented x 3, equal unlabored respirations, skin warm/dry/pink. Patient states feeling better. Patient states symptoms have improved. 17:48 Reassessment: Patient appears in no apparent distress at this time. Patient and/or jd3 family updated on plan of care and expected duration. Pain level reassessed. Patient is alert, oriented x 3, equal unlabored respirations, skin warm/dry/pink. pt resting in room awaiting results. Vital Signs: 14:09 BP 106 / 74; Pulse 83; Resp 18; Temp 97.2; Pulse Ox 98% on R/A; Weight 117.93 kg (R); ca1 Height 5 ft. 4 in. (162.56 cm) (R); Pain 0/10; 18:29 BP 110 / 78; Pulse 82; Resp 17 S; Pulse Ox 97% on R/A; jd3 14:09 Body Mass Index 44.63 (117.93 kg, 162.56 cm) ca1 ED Course: 13:48 Patient arrived in ED. am2 14:11 Triage completed. ca1 14:12 Arm band placed on right wrist. ca1 14:15 Parveen Figueroa NP is PHCP. pm1 14:15 Sagar Arbolead MD is Attending Physician. pm1 14:59 Douglas Bazzi, RN is Primary Nurse. jd3 15:11 Chest Single View XRAY In Process Unspecified. EDMS 17:50 Patient has correct armband on for positive identification. Bed in low position. Call jd3 light in reach. Side rails up X 1. Pulse ox on. NIBP on. 18:29 No provider procedures requiring assistance completed. Patient did not have IV access jd3 during this emergency room visit. Administered Medications: 15:14 Drug: Tussionex Pennkinetic ER (chlorpheniramine-hydrocodone) 5 ml Route: PO; jd3 16:00 Follow up: Response: No adverse reaction jd3 15:15 Drug: Albuterol 2.5 mg Route: Inhalation; jd3 16:00 Follow up: Response: No adverse reaction jd3 Outcome: 18:11 Discharge ordered by . pm1 18:29 Discharged to home ambulatory, with family. jd3 18:29 Condition: stable 18:29 Discharge instructions given to patient, Instructed on discharge instructions, follow up and referral plans. medication usage, Demonstrated understanding of instructions, follow-up care, medications, Prescriptions given X 3. 18:30 Patient left the ED. jd3 Signatures: Dispatcher [employer] EDMS Parveen Figueroa, HUGO WATERMASTER pm1 Trisha French am2 Douglas Bazzi RN RN jd3 Alba Gallardo RN RN ca1
--- NOTE | 2020-08-24 18:12 | EDPHYS ---
Physician Documentation [facility] Name: Isa Day Age: 50 yrs Sex: Female : 1970 Arrival Date: 08/24/2020 Time: 13:48 Bed 16 Private MD: TANNA Physician Sagar Arboleda HPI: 08/24 16:01 This 50 yrs old Black Female presents to ER via Ambulatory with complaints of Cough, pm1 General Weakness. 16:01 The patient or guardian reports cough, with productive sputum, that is white. Onset: pm1 The symptoms/episode began/occurred 1 week(s) ago. Severity of symptoms: in the emergency department the symptoms are actually worse. Modifying factors: The symptoms are alleviated by nothing, the symptoms are aggravated by nothing. Associated signs and symptoms: Pertinent positives: sore throat, Pertinent negatives: chest pain, diarrhea, fever, vomiting, SOB. The patient has not experienced similar symptoms in the past. The patient has not recently seen a physician, Called her PCP office and they wanted her to get evaluated for possible pneumonia. Patient with onset of cough and sore throat 1 week ago. productive with whitish phlegm. Onset of wheezing three days ago. Reports that she has been drinking fluids but not eating much food due to the sore throat and it is making her feel weak. 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 - Social history:: Smoking status: Patient denies any tobacco usage or history of. ROS: 16:01 Constitutional: Negative for fever, chills, and weight loss. pm1 16:01 Neck: Negative for injury, pain, and swelling, Cardiovascular: Negative for chest pain, palpitations, and edema. 16:01 Abdomen/GI: Negative for abdominal pain, nausea, vomiting, diarrhea, and constipation, Back: Negative for injury and pain, MS/Extremity: Negative for injury and deformity, Skin: Negative for injury, rash, and discoloration, Neuro: Negative for headache, weakness, numbness, tingling, and seizure. 16:01 ENT: Positive for sore throat, Negative for ear pain, sinus congestion, sinus pain. 16:01 Respiratory: Positive for cough, wheezing, Negative for shortness of breath. Exam: 16:01 Constitutional: This is a well developed, well nourished patient who is awake, alert, pm1 and in no acute distress. Head/Face: Normocephalic, atraumatic. ENT: Nares patent. No nasal discharge, no septal abnormalities noted. Tympanic membranes are normal and external auditory canals are clear. Oropharynx with no redness, swelling, or masses, exudates, or evidence of obstruction, uvula midline. Mucous membranes moist. Neck: Trachea midline, no thyromegaly or masses palpated, and no cervical lymphadenopathy. Supple, full range of motion without nuchal rigidity, or vertebral point tenderness. No Meningismus. 16:01 Back: No spinal tenderness. No costovertebral tenderness. Full range of motion. 16:01 Skin: Warm, dry with normal turgor. Normal color with no rashes, no lesions, and no evidence of cellulitis. MS/ Extremity: Pulses equal, no cyanosis. Neurovascular intact. Full, normal range of motion. 16:01 Cardiovascular: Exam negative for acute changes, Rate: normal, Rhythm: regular, Pulses: no pulse deficits are appreciated. 16:01 Respiratory: Exam negative for acute changes, respiratory distress, shortness of breath. 16:01 Abdomen/GI: Exam negative for acute changes, Inspection: abdomen appears normal, Palpation: abdomen is soft and non-tender, in all quadrants. 16:01 Neuro: Exam negative for acute changes, Orientation: is normal, Mentation: is normal, Motor: is normal, moves all fours. Vital Signs: 14:09 BP 106 / 74; Pulse 83; Resp 18; Temp 97.2; Pulse Ox 98% on R/A; Weight 117.93 kg (R); ca1 Height 5 ft. 4 in. (162.56 cm) (R); Pain 0/10; 18:29 BP 110 / 78; Pulse 82; Resp 17 S; Pulse Ox 97% on R/A; jd3 14:09 Body Mass Index 44.63 (117.93 kg, 162.56 cm) ca1 MDM: 14:38 Patient medically screened. [facility] 16:07 Data reviewed: vital signs. Data interpreted: Pulse oximetry: on room air is 98 %. pm1 Interpretation: normal. 18:10 Counseling: I had a detailed discussion with the patient and/or guardian regarding: the pm1 historical points, exam findings, and any diagnostic results supporting the discharge/admit diagnosis, lab results, radiology results, the need for outpatient follow up, to return to the emergency department if symptoms worsen or persist or if there are any questions or concerns that arise at home. 08/24 14:50 Order name: Chest Single View XRAY; Complete Time: 15:58 pm1 08/24 14:52 Order name: Strep; Complete Time: 17:44 pm1 08/24 17:45 Order name: Throat Culture EDMS 08/24 18:07 Order name: COVID-19/FLU A+B; Complete Time: 18:12 EDNY 08/24 14:52 Order name: Droplet/Contact Precautions; Complete Time: 15:00 pm1 08/24 14:52 Order name: Labs collected and sent; Complete Time: 15:07 pm1 08/24 14:52 Order name: O2 Per Protocol; Complete Time: 15:00 pm1 Administered Medications: 15:14 Drug: Tussionex Pennkinetic ER (chlorpheniramine-hydrocodone) 5 ml Route: PO; jd3 16:00 Follow up: Response: No adverse reaction jd3 15:15 Drug: Albuterol 2.5 mg Route: Inhalation; jd3 16:00 Follow up: Response: No adverse reaction jd3 Disposition: 08/25 08:34 Co-signature as Attending Physician, Sagar Arboleda MD I agree with the assessment and elieser plan of care. Disposition: 08/24/20 18:11 Discharged to Home. Impression: Bronchitis, not specified as acute or chronic. - Condition is Stable. - Discharge Instructions: Acute Bronchitis, Adult, How to Use an Inhaler, Cough, Adult. - Prescriptions for Medrol (Adi) 4 mg Oral Tablets, Dose Pack - take 1 tablet by ORAL route as directed - follow package instructions; 1 packet. Albuterol Sulfate 90 mcg/actuation - inhale 1-2 puff by INHALATION route every 4-6 hours; 1 Inhaler. Guaifenesin AC 10- 100 mg/5 mL Oral Liquid - take 10 milliliter by ORAL route every 4 hours As needed; 240 milliliter. - Medication Reconciliation Form, Thank You Letter, Antibiotic Education, Prescription Opioid Use form. - Follow up: Emergency Department; When: As needed; Reason: Worsening of condition. Follow up: Private Physician; When: 2 - 3 days; Reason: Recheck today's complaints, Continuance of care, Re-evaluation by your physician. - Problem is new. - Symptoms have improved. Signatures: Dispatcher [employer] EDNY Sagar Arboleda MD MD cha Marinas, Patrick, AUGER MILL OPERATOR AUGER MILL OPERATOR pm1 Douglas Bazzi RN RN jd3 Alba Gallardo RN RN ca1 Corrections: (The following items were deleted from the chart) 08/24 17:23 14:52 CORONAVIRUS+MR.LAB.BRZ ordered. [facility] 17: 14:52 Influenza Screen (A \T\ B)+BA.LAB.BRZ ordered. [facility] 18:30 18:11 08/24/2020 18:11 Discharged to Home. Impression: Bronchitis, not specified as jd3 acute or chronic. Condition is Stable. Forms are Medication Reconciliation Form, Thank You Letter, Antibiotic Education, Prescription Opioid Use. Follow up: Emergency Department; When: As needed; Reason: Worsening of condition. Follow up: Private Physician; When: 2 - 3 days; Reason: Recheck today's complaints, Continuance of care, Re-evaluation by your physician. Problem is new. Symptoms have improved. pm1
[2020-08-24 18:35] VITALS: TEMP 97.2
[2020-08-24 18:36] VITALS: BP 110/78; O2SAT 97
== END 2020-08-24 18:30 | disposition home or self-care (01) ==
LOC: ER 13:46
DX: J40 Bronchitis, not specified as acute or chronic (principal); Z20.822 Contact with and (suspected) exposure to COVID-19; I11.0 Hypertensive heart disease with heart failure; I50.9 Heart failure, unspecified; M19.90 Unspecified osteoarthritis, unspecified site; Z95.0 Presence of cardiac pacemaker
CPT/HCPCS: 87070; 87081; 0240U; 71045; 99284

== ENCOUNTER → 2023-05-09 | Emergency (ER) | payer OTHER ==
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
[2023-05-09 11:09] VITALS: BP 110/60; TEMP 97.7; O2SAT 99
== END ==
LOC: ER 09:24
DX: S39.012A Strain of muscle, fascia and tendon of lower back, initial encounter (principal); V49.49XA Driver injured in collision with other motor vehicles in traffic accident, initial encounter; I10 Essential (primary) hypertension; Z95.0 Presence of cardiac pacemaker
CPT/HCPCS: 74176; 99284